=== PATIENT | male | born 1995 | race Caucasian/White ===

== ENCOUNTER 2019-08-18 11:24 | Emergency (ER) | payer MEDICAID ==
[~2019-08-18] VITALS: Ht 180.3 cm; Wt 63.0 kg
[2019-08-18 12:24] LABS: BASOPHILS # (AUTO) 0.1 X10'3 (0-0.2); BASOPHILS % (AUTO) 0.7 % (0-1); EOSINOPHILS # (AUTO) 0.1 X10'3 (0-0.9); EOSINOPHILS % (AUTO) 1.1 % (0-6); HEMATOCRIT 45.2 % (42.0-52.0); HEMOGLOBIN 15.5 g/dl (14.0-17.9); LYMPHOCYTES # (AUTO) 1.9 X10'3 (1.1-4.8); LYMPHOCYTES % (AUTO) 23.8 % (21-51); MEAN CORPUSCULAR HEMOGLOBIN 30.7 PG (27.0-31.0); MEAN CORPUSCULAR HGB CONC 34.2 g/dL (33.0-36.5); MEAN CORPUSCULAR VOLUME 89.6 FL (78-98); MEAN PLATELET VOLUME 8.1 FL (7.4-10.4); MONOCYTES # (AUTO) 0.6 X10'3 (0-0.9); MONOCYTES % (AUTO) 7.1 % (2-12); NEUTROPHILS # (AUTO) 5.5 X10'3 (1.8-7.7); NEUTROPHILS % (AUTO) 67.3 % (42-75); PLATELET COUNT 238 X10'3 (140-440); RED BLOOD COUNT 5.04 X10'6 (4.70-6.10); WHITE BLOOD COUNT 8.1 X10'3 (4.5-11.0)
[2019-08-18 12:36] LABS: ALANINE AMINOTRANSFERASE 21 U/L (12-78); ALBUMIN 4.5 G/DL (3.4-5.0); ALBUMIN/GLOBULIN RATIO 1.5 (1.1-1.5); ALKALINE PHOSPHATASE 79 IU/L (46-116); ANION GAP 8 (8-16); ASPARTATE AMINO TRANSFERASE 12 U/L (10-37); BILIRUBIN,TOTAL 0.4 MG/DL (0.1-1.0); BLOOD UREA NITROGEN 4 MG/DL (7-18); BUN/CREATININE RATIO 4.2 (5.4-32.0); CALCIUM 9.3 MG/DL (8.5-10.1); CHLORIDE 105 MMOL/L (99-107); CREATININE 0.95 MG/DL (0.60-1.10); GLUCOSE 101 MG/DL (70-104); POTASSIUM 3.8 MMOL/L (3.5-5.1); SODIUM 142 MMOL/L (135-145); TOTAL CARBON DIOXIDE 29.1 MMOL/L (24-32); TOTAL PROTEIN 7.5 G/DL (6.4-8.2); eGFR > 90 ML/MIN
[2019-08-18 12:46] LABS: ETHANOL < 0.010 GM/DL (0.0-0.010)
[2019-08-18 14:51] LABS: URINE AMPHETAMINE SCREEN NEGATIVE (Neg); URINE BARBITUATE SCREEN NEGATIVE (Neg); URINE BENZODIAZEPINES SCREEN NEGATIVE (Neg); URINE CANNABINOID SCREEN POSITIVE (Neg); URINE COCAINE SCREEN NEGATIVE (Neg); URINE METHADONE SCREEN NEGATIVE (Neg); URINE OPIATE SCREEN POSITIVE (Neg); URINE PHENCYCLIDINE SCREEN NEGATIVE (Neg)
[2019-08-18 14:57] LABS: CLARITY,URINE CLEAR (Clear); COLOR,URINE YELLOW (Yellow); GLUCOSE, URINE NEGATIVE (Neg); KETONES,URINE NEGATIVE (Neg); LEUKOCYTE ESTERASE ,URINE NEGATIVE (Neg); NITRITES, URINE NEGATIVE (Neg); OCCULT BLOOD,URINE NEGATIVE (Neg); PROTEIN,URINE NEGATIVE (Neg); UA COLLECTION TYPE VOIDED; UROBILINOGEN,URINE 0.2 E.U/dL (0.2-1.0)
[2019-08-18] MEDS ORDERED: ARIP5TAB14 PO (18:04)
[2019-08-18] MEDS ORDERED: SPIR100T5 PO (18:04)
[2019-08-18] MEDS ORDERED: EST1T PO (18:04)
--- NOTE | 2019-08-18 18:40 | NUR ---
Received report from CHAPARRO Carrillo. Patient is laying quietly in bed. Patient is cooperative, friendly and linear when speaking. Patient reports being a smoker and requests nicotine patch at this time. Patient ahs visitor at bedside. No distress is noted at this time, RR are even and unlabored, will continue to monitor.
[2019-08-18] MEDS ORDERED: nicotine 21mg patch - 24 hr TD ONE (19:10)
[2019-08-18] MEDS ORDERED: diphenhydrAMINE 25mg capsule PO ONE (19:10)
[2019-08-18] MEDS: spironolactone 25 MG tablet PO SCH (20:00)
--- NOTE | 2019-08-18 20:30 | NUR ---
Patient is in bed sleeping. No distress is noted at this time, RR are even and unlabored. Will continue to monitor.
--- NOTE | 2019-08-18 21:28 | NUR ---
packet faced to [facility]
--- NOTE | 2019-08-19 | NUR ---
Patient resting in bed with eyes closed, RR are even and unlabored, no distress noted at this time. Will continue to monitor.
--- NOTE | 2019-08-19 02:08 | NUR ---
Patient resting in bed with eyes closed, RR are even and unlabored, no distress noted at this time. Will continue to monitor.
--- NOTE | 2019-08-19 04:35 | NUR ---
Patient resting in bed with eyes closed, RR are even and unlabored, no distress noted at this time. Will continue to monitor.
[2019-08-19 06:09] VITALS: BP 98/55
[2019-08-19] MEDS ORDERED: aripiprazole 5mg tablet PO SCH (08:00)
[2019-08-19] MEDS ORDERED: estradiol 1mg tablet PO SCH (08:00)
[2019-08-19] MEDS: spironolactone 25 MG tablet PO SCH (08:52)
[2019-08-19] MEDS ORDERED: nicotine 21mg patch - 24 hr TD SCH (09:05)
[2019-08-19] MEDS ORDERED: ARIP5TAB14 PO (11:32)
--- NOTE | 2019-08-19 11:56 | NUR ---
[facility] has released pt. Pt has been suspended from the clinic that was giving pt meds. Pt written a an RX for abilify x 10 days. Pt encouraged to followup at [facility] mental health. Belongongs given to pt. Pt's mom is coming to waste picker pt.
== END 2019-08-19 12:47 | disposition home or self-care (01) ==
LOC: ER 11:24
DX: R45.851 Suicidal ideations (principal); F41.9 Anxiety disorder, unspecified; Z79.899 Other long term (current) drug therapy
CPT/HCPCS: 36415; 80053; 80305; 80320; 81003; 84443; 85025; 99284; Q0163

== ENCOUNTER 2022-10-29 14:40 | Emergency (ER) | payer MEDICAID ==
[~2022-10-29 14:40] MED LIST: ARIP5TAB14 PO; EST1T PO; SPIR100T5 PO
== END 2022-10-29 15:59 | disposition left against medical advice (07) ==
LOC: ER 14:40
DX: R31.9 Hematuria, unspecified (principal); Z53.21 Procedure and treatment not carried out due to patient leaving prior to being seen by health care provider